=== PATIENT | female | born 1965 | race Caucasian/White ===

== ENCOUNTER 2024-04-20 09:07 | Outpatient (AMB) | payer OTHER, SELFPAY ==
[2024-04-20 09:12] VITALS: BP 134/72; PULSE 76; O2SAT 97; BMI 32.4
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
== END 2024-04-20 10:30 | disposition home or self-care (01) ==
PROVIDERS: PCP Internal Medicine; Visit Provider Nurse Practitioner Family
DX: R55 Syncope and collapse (principal); R06.83 Snoring; R53.83 Other fatigue; R51.9 Headache, unspecified
CPT/HCPCS: 99204

== ENCOUNTER → 2024-04-20 09:07 | Outpatient (BNVA) | payer OTHER, SELFPAY | PROVIDERS: PCP Internal Medicine; Visit Provider Nurse Practitioner Family | DX: R55 Syncope and collapse (principal); R06.83 Snoring; R53.83 Other fatigue; R51.9 Headache, unspecified | CPT/HCPCS: 99202 ==

== ENCOUNTER → 2024-05-31 13:09 | Outpatient (REF) | payer OTHER, SELFPAY | LOC: HO.SL 13:09 | PROVIDERS: PCP Physician Assistant Medical; Visit Provider Nurse Practitioner Family | DX: G47.33 Obstructive sleep apnea (adult) (pediatric) (principal); R53.83 Other fatigue; R06.83 Snoring | CPT/HCPCS: 95806 ==

== ENCOUNTER → 2024-05-31 13:29 | Outpatient (BNV) | payer OTHER, SELFPAY | PROVIDERS: PCP Physician Assistant Medical; Visit Provider Psychiatry & Neurology Neurology | DX: G47.33 Obstructive sleep apnea (adult) (pediatric) (principal) | CPT/HCPCS: 95806 ==

== ENCOUNTER 2024-06-30 13:00 | Outpatient (REF) | payer OTHER, SELFPAY ==
--- NOTE | 2024-06-30 13:04 | EEG_ITS ---
This is a 16-channel EEG with an EKG lead. The patient is reported awake during the tracing. Background EEG rhythm is 14-16 hertz 5-15 microvolt posteriorly and lower amplitude fast anteriorly. Photic stimulation does not produce any significant abnormality. Hyperventilation is not performed. Cardiac lead does not reveal any significant abnormality. IMPRESSION: No significant abnormality noted on this EEG. MD JOSE M Sanchez/SHARAN / [id number]
== END 2024-06-30 13:01 | disposition home or self-care (01) ==
LOC: HO.NEURO 13:00
PROVIDERS: PCP Physician Assistant Medical; Visit Provider Nurse Practitioner Family
DX: R55 Syncope and collapse (principal)
CPT/HCPCS: 95816

== ENCOUNTER 2024-11-07 09:55 | Outpatient (AMB) | payer OTHER, SELFPAY ==
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
[2024-11-07 10:21] VITALS: BP 142/72; BMI 31.8
== END 2024-11-07 11:22 | disposition home or self-care (01) ==
PROVIDERS: PCP Internal Medicine; Visit Provider Nurse Practitioner Family
DX: G43.109 Migraine with aura, not intractable, without status migrainosus (principal); G47.33 Obstructive sleep apnea (adult) (pediatric); R55 Syncope and collapse
CPT/HCPCS: 99214

== ENCOUNTER → 2024-11-07 09:55 | Outpatient (BNVA) | payer OTHER, SELFPAY | PROVIDERS: PCP Internal Medicine; Visit Provider Nurse Practitioner Family | DX: G43.109 Migraine with aura, not intractable, without status migrainosus (principal); G47.33 Obstructive sleep apnea (adult) (pediatric); R55 Syncope and collapse | CPT/HCPCS: 99212 ==

== ENCOUNTER 2025-05-08 09:42 | Outpatient (AMB) | payer OTHER, SELFPAY ==
[2025-05-08 09:46] VITALS: BP 148/90; PULSE 73; O2SAT 97; BMI 32.0
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
== END 2025-05-08 10:36 | disposition home or self-care (01) ==
LOC: HO.HSMS 09:42
PROVIDERS: PCP Internal Medicine; Visit Provider Nurse Practitioner Family
DX: G43.109 Migraine with aura, not intractable, without status migrainosus (principal); G47.33 Obstructive sleep apnea (adult) (pediatric); R55 Syncope and collapse
CPT/HCPCS: 99214

== ENCOUNTER → 2025-05-08 09:42 | Outpatient (BNVA) | payer OTHER, SELFPAY | PROVIDERS: PCP Internal Medicine; Visit Provider Nurse Practitioner Family | DX: G43.109 Migraine with aura, not intractable, without status migrainosus (principal); G47.33 Obstructive sleep apnea (adult) (pediatric); R55 Syncope and collapse | CPT/HCPCS: 99212 ==

== ENCOUNTER 2025-11-07 09:50 | Outpatient (AMB) | payer OTHER, SELFPAY ==
[2025-11-07 09:55] VITALS: BP 140/90; PULSE 58; O2SAT 98; BMI 32.9
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
--- OUTSIDE RECORDS SUMMARY | 2025-11-07 10:39 | XMS_ITS | Clinical Summary ---
Author Organization [facility] Address [address] [place] [address] Phone Care Team Providers Care Cook Helper Fruit Name Role Phone Renetta Pérez MD Primary Care Provider [phone] Medical History Medical History Date Comments Headache DX:Headache Anxiety state DX:Anxiety state Social History Tobacco Use Types Packs/Day Years Used Date Smoking Tobacco: Never Smokeless Tobacco: Never Alcohol Use Standard Drinks/Week Comments Not Currently 0 (1 standard drink = 0.6 oz pur e alcohol) Comments Unknown Sex and Gender Information Value Date Recorded Sex Assigned at Not on file Legal Sex Female 1:32 PM EST Gender Identity Not on file Sexual Orientation Not on file Last Filed Vital Signs Vital Sign Reading Time Taken Comments Blood Pressure 137/90 05/16/2024 8:22 AM EDT Sitting L Arm Pulse 69 05/16/2024 8:22 AM EDT Temperature - - Respiratory Rate - - Oxygen Saturation - - Inhaled Oxygen Concentration - - Weight 79 kg (174 lb 2.6 oz) 12/13/2024 12:50 PM EST Height 156 cm (5' 1.42 ) 05/16/2024 8:2 2 AM EDT Body Mass Index 32.46 05/16/2024 8:22 AM EDT Plan of Treatment Upcoming Encounters Date Type Department Care Team (Late st Contact Info) Description 01/25/2026 10:40 AM EDT Office Visit [facility] [address] [facility] [address] [place] [address] Zoya Lopez, DAVID Medical [address] [place] [address] Health Maintenance Due Date Last Done Comments Colorectal Cancer Screening: Colonoscopy 1965 DTaP,Tdap,and Td Vaccines (1 - Tdap) 1982 Cervical Cancer Screening: P ap Smear 02/28/1984 Pneumococcal Vaccine: 50+ Ye ars (1 of 1 - PCV) 2013 Zoster Vaccines (1 of 2) 2013 HIV Screening 10/14/2022 Hepatitis C Screening 10/14/2022 Social Influencers of Health Screening 10/14/2022 Breast Cancer Screening 04/08/2023 04/08/2021 Depression Screening 11/16/2024 COVID-19 Vaccine (1 - 2024-2 6 season) 2025 Influenza Vaccine (#1) 2025 10/24/2020 RSV Immunization Adult Patie nts (1 - 1-dose 75+ series) 2038 HIB Vaccines Aged Out No longer eligi ble based on patient's age to complete this topic HPV Vaccines Aged Out No longer eligi ble based on patient's age to complete this topic Hepatitis A Vaccines Aged Out No long er eligible based on patient's age to complete this topic Hepatitis B Vaccines Aged Out No long er eligible based on patient's age to complete this topic IPV Vaccines Aged Out No longer eligi ble based on patient's age to complete this topic MMR Vaccines Aged Out No longer eligi ble based on patient's age to complete this topic Meningococcal ACWY Vaccine Aged Out N o longer eligible based on patient's age to complete this topic Meningococcal B Vaccine Aged Out No l onger eligible based on patient's age to complete this topic RSV Immunization Patients Un jeannine 20 months Aged Out No longer eligible b ased on patient's age to complete this topic Varicella Vaccines Aged Out No longer eligible based on patient's age to complete this topic Procedures Procedure Name Priority Date/Time Associated Diagnosis Comments [facility] SCREENING DIGITAL Routine 04/08/2021 4:26 PM EDT Encounter for screening mammogram for malignant neoplasm of breast from Last 3 Months or Most Recently Relevant to Health Maintenance Results * NEW SCREENING DIGITAL (04/08/2021 4:26 PM EDT) Anatomical Region Laterality Modality Mammography 04/08/2021 2:35 PM EDT Narrative 04/08/2021 4:26 PM EDT [facility] Diagnostic Imaging Department [address] [place] [id number] Patient: ANDRÉSLETYKWAME Ramos./Age/Sex: 1965 - 56 - F Unit#: [id number] Location/Status: [facility]/REG CLI Mnemonic/Ordering Site: [facility] Ordering Physician: RENETTA PÉREZ MD [facility] Screening Digital - 04/08/21 - 1504 EXAM: [facility] Screening Digital EXAM DATE AND TIME: 04/08/2021 3:05 PM HISTORY: Screening. Baseline exam. COMPARISON: No comparison studies. TECHNIQUE: CC and MLO views of both breasts were obtained using full field digital mammography. Bilateral digital breast tomosynthesis was performed in the MLO projection. Computer aided detection with the [employer] 7.2-H was employed. TISSUE DENSITY: a. The breasts are almost entirely fatty. FINDINGS: No suspicious masses, grouped microcalcifications, or areas of architectural distortion are seen. The skin and vascularity are unremarkable. IMPRESSION: No mammographic evidence of malignancy is seen. A negative mammogram in the presence of a clinically suspicious palpable abnormality does not preclude the possibility of malignancy or alter the indications for biopsy. BI-RADS: Category 1: Negative RECOMMENDATION(S): 1: Routine screening mammogram BILATERAL in 1 year. 89717, 04131 [id number], 7099F Dictating Physician: KASSANDRA HUGGINS MD Electronically Signed by: KASSANDRA HUGGINS MD Dic Date/Time: 04/08/211625 Sign date/Time: 04/08/211625 Procedure Note Kassandra Huggins MD - 11/04/2022 [facility] Diagnostic Imaging Department [address] [place] [id number] Patient: ANDRÉSLETY./Age/Sex: 1965 - 56 - F Unit#: [id number] Location/Status: [facility] CLI Mnemonic/Ordering Site: [facility] Ordering Physician: RENETTA PÉREZ MD [facility] Screening Digital - 04/08/21 - 1504 EXAM: [facility] Screening Digital EXAM DATE AND TIME: 04/08/2021 3:05 PM HISTORY: Screening. Baseline exam. COMPARISON: No comparison studies. TECHNIQUE: CC and MLO views of both breasts were obtained using fullfield digital mammography. Bilateral digital breast tomosynthesis was performedin the MLO projection. Computer aided detection with the [employer] 7.2-[employer] employed. TISSUE DENSITY: a. The breasts are almost entirely fatty. FINDINGS: No suspicious masses, grouped microcalcifications, or areas ofarchitectural distortion are seen. The skin and vascularity are unremarkable. IMPRESSION: No mammographic evidence of malignancy is seen. A negative mammogram in the presence of a clinically suspicious palpable abnormality does not preclude the possibility of malignancy or alter the indications for biopsy. BI-RADS: Category 1: Negative RECOMMENDATION(S): 1: Routine screening mammogram BILATERAL in 1 year. 48026, 15427 3341F, 7042F Dictating Physician: KASSANDRA HUGGINS MD Electronically Signed by: KASSANDRA HUGGINS MD Dic Date/Time: 04/08/211625 Sign date/Time: 04/08/211625 Renetta Pérez MD IMG BI PROCEDURES Final Result from Last 3 Months or Most Recently Relevant to Health Maintenance Insurance [employer] [place] [employer] Care Teams Cook Helper Fruit Relationship Specialty Start Date End Date Renetta Pérez MD [address] [place] [address] [address] [place], [place] PCP - General 11/05/23
== END 2025-11-07 10:29 | disposition home or self-care (01) ==
LOC: HO.HSMS 09:51
PROVIDERS: PCP Internal Medicine; Visit Provider Nurse Practitioner Family
DX: G43.109 Migraine with aura, not intractable, without status migrainosus (principal); G47.33 Obstructive sleep apnea (adult) (pediatric); R55 Syncope and collapse
CPT/HCPCS: 99214

== ENCOUNTER → 2025-11-07 09:50 | Outpatient (BNVA) | payer OTHER, SELFPAY | PROVIDERS: PCP Internal Medicine; Visit Provider Nurse Practitioner Family | DX: G43.109 Migraine with aura, not intractable, without status migrainosus (principal); G47.33 Obstructive sleep apnea (adult) (pediatric); R55 Syncope and collapse | CPT/HCPCS: 99212 ==